=== PATIENT | female | born 1975 | race Caucasian/White ===

== ENCOUNTER 2017-06-06 11:52 | Inpatient (IN) | payer MEDICAID ==
[~2017-06-06] VITALS: Ht 160 cm; Wt 140.3 kg
[2017-06-06 12:14] LABS: VENOUS BLOOD GAS BE 4.9 (-4-4); VENOUS BLOOD GAS SAO2 87.2 % (60-80)
[2017-06-06 12:15] LABS: VENOUS BLOOD GAS SITE VENIPUNCTURE
[2017-06-06] MEDS ORDERED: PROAIR HFA0.09 MG/AC IH (12:19)
[2017-06-06] MEDS ORDERED: IBU800 M1 PO (12:20)
[2017-06-06] MEDS ORDERED: COMBIRESP IH (12:20)
[2017-06-06 12:23] LABS: BASO # 0.1 (0.0-0.2); BASO % 0.5 % (0.0-2.0); EOS % 0.3 % (0-4.0); GRAN # 11.3 (1.4-6.5); GRAN % 83.9 % (42.2-75.2); HEMATOCRIT 45.3 % (37.0-47.0); HEMOGLOBIN 14.6 g/dl (12.5-16.0); LYMPH # 1.2 (1.2-3.4); LYMPH % 9.2 % (20.0-51.0); MEAN CELL VOLUME 93 fl (80.0-100.0); MEAN CORPUSCULAR HEMOGLOBIN 30 pg (27.0-31.0); MEAN CORPUSCULAR HGB CONC 32 g/dl (33.0-37.0); MEAN PLATELET VOLUME 9.7 fl (7.4-10.4); MONO # 0.7 (0.1-0.6); MONO % 5.5 % (1.7-9.3); PLATELET COUNT 336 K/mm3 (130-400); RED BLOOD COUNT 4.86 M/mm3 (4.10-5.30); REDCELL DISTRIBUTION WIDTH-CV 16.7 % (11.5-14.5); WHITE BLOOD COUNT 13.4 K/mm3 (4.8-10.8)
[2017-06-06 12:37] LABS: ADJUSTED CALCIUM 9.2 mg/dL (8.4-10.2); ALBUMIN 3.8 gm/dL (3.5-5.0); BILIRUBIN,TOTAL 0.5 mg/dL (0.0-1.0); CREATININE, serum 0.6 mg/dL (0.52-1.25); POTASSIUM 4.5 mmol/L (3.4-5.0); TOTAL PROTEIN 6.9 gm/dL (6.4-8.2)
[2017-06-06 12:53] LABS: INR 1.1 (0.8-3.0); PROTHROMBIN TIME 11.9 SECONDS (9.7-12.8)
[2017-06-06] MEDS ORDERED: QVAR0.04 MG/AC IH ×2 (15:24→15:25)
[2017-06-06] MEDS ORDERED: REQUIP3 MG PO (15:26)
[2017-06-06] MEDS ORDERED: NEURONTIN800 MG/TAB PO (15:28)
[2017-06-06 15:35] VITALS: BP 105/36; PULSE 88; TEMP 97.9
[2017-06-06 20:08] VITALS: BP 137/66; PULSE 83; TEMP 97.6
[2017-06-06 23:47] VITALS: BP 140/86; PULSE 80; TEMP 97.9
[2017-06-07 04:20] VITALS: BP 117/59; PULSE 79; TEMP 98.3
[2017-06-07 08:24] VITALS: BP 94/45; PULSE 79; TEMP 98.2
[2017-06-07 12:08] VITALS: BP 142/109; PULSE 87; TEMP 98.3
[2017-06-07 12:19] VITALS: BP 110/47
[2017-06-07 15:44] VITALS: BP 126/60; PULSE 90; TEMP 98.4
[2017-06-07 20:45] VITALS: BP 123/63; PULSE 84; TEMP 98.2
[2017-06-08 00:04] VITALS: BP 128/58; PULSE 83; TEMP 98.5
[2017-06-08 04:37] VITALS: BP 116/58; PULSE 73; TEMP 98.2
[2017-06-08 07:24] VITALS: BP 126/92; PULSE 77; TEMP 97.7
[2017-06-08 11:55] VITALS: BP 122/59; PULSE 88; TEMP 97.8
[2017-06-08] MEDS ORDERED: LEVAQUIN 750MG750 M1 PO (12:11)
[2017-06-08] MEDS ORDERED: MEDROL 4MG DOSPA4 MG PO (12:11)
== END 2017-06-08 16:10 | disposition home or self-care (01) | DRG 191 ==
LOC: COL.ER 11:52 → MEDICAL 13:51
PROVIDERS: Emergency Medicine
DX: J44.1 Chronic obstructive pulmonary disease with (acute) exacerbation (principal); Z68.43 Body mass index [BMI] 50.0-59.9, adult; F41.9 Anxiety disorder, unspecified; M79.7 Fibromyalgia; G25.81 Restless legs syndrome; F17.210 Nicotine dependence, cigarettes, uncomplicated; E66.01 Morbid (severe) obesity due to excess calories
CPT/HCPCS: 99232-AI; 99239; G0378; J1650; J2270; J2920; J2930; J3475